=== PATIENT | female | born 1985 | race Caucasian/White ===

== ENCOUNTER 2025-01-29 17:15 | Emergency (ER) | payer OTHER ==
[2025-01-29] MEDS ORDERED: Magnesium Sulfate 2gm IVPB 2 G/50 ML BAG IV ONE (18:22)
[2025-01-29] MEDS ORDERED: NA CHLORIDE 0.9% 1,000 ML ONE (18:22)
[2025-01-29] MEDS ORDERED: ACETAMINOPHEN 500 MG TAB ONE (18:22)
[2025-01-29 18:52] LABS: Absolute Basophils 0.1 K/uL (0-0.5); Absolute Eosinophils 0.1 K/uL (0-0.5); Absolute Lymphocytes (CBC) 3.7 K/uL (0.7-4.9); Absolute Monocytes 0.5 K/uL (0.1-1.3); Absolute Neutrophil 5.2 K/uL (1.8-8.0); Basophils % 0.8 % (0-1.3); Eosinophils % 0.8 % (0-4.4); Hematocrit 39.4 % (36.0-45.0); Hemoglobin 13.2 g/dL (12.0-15.0); Lymphocytes % 38.2 % (15.3-44.8); MCHC 33.4 g/dL (32.0-36.0); MCV 83.8 fL (80-100); MPV 7.2 fL (7.6-11.3); Monocytes % 5.5 % (3.3-12.3); Neutrophils % 54.7 % (41.7-73.7); Nucleated Red Blood Cells % 0.1 % (0-0); Platelets 351 thou/uL (152-406)
[2025-01-29 19:11] LABS: ALT/SGPT 22 U/L (13-56); AST/SGOT 13 U/L (15-37); Albumin 3.4 g/dL (3.4-5.0); Albumin/Globulin Ratio 0.8 (1.1-1.8); Alkaline Phosphatase 76 U/L (45-117); Anion Gap 8.5 mEq/L (5.0-15.0); BUN Blood Urea Nitrogen 9 mg/dL (7-18); Bicarbonate 24 mEq/L (21-32); Bilirubin Total 0.3 mg/dL (0.2-1.0); Globulin 4.5 g/dL (2.3-3.5); Glomerular Filtration Rate 101 ml/min (=/>90); Glucose Level 120 mg/dL (74-106); NT PRO-BNP 22 pg/mL (<125); Potassium 3.5 mEq/L (3.5-5.1); Protein, Total 7.9 g/dL (6.4-8.2); Sodium Level 137 mEq/L (136-145); Thyroid Stimulating Hormone 0.371 uIU/mL (0.358-3.740)
[2025-01-29 19:13] LABS: Bilirubin Direct < 0.2 mg/dL (0-0.2); Bilirubin Indirect, Calculated 0.1 mg/dL (0.2-0.8); Troponin High Sensitivity < 3.0 pg/mL (<58.9)
--- NOTE | 2025-01-29 19:21 | RAD REPORT ---
EXAMINATION: ONE VIEW CHEST XR CLINICAL INDICATION: Female, 39 years old.,CHEST PAIN TECHNIQUE: Frontal chest projection is submitted. Examination is limited by patient positioning and t echnique. COMPARISON: No prior exam. FINDINGS: The lungs are well inflated and clear. No pneumothorax or sizable effusion. The heart is normal in s ize. Mediastinal contours are unremarkable. IMPRESSION: No acute intrathoracic abnormalities.
[2025-01-29] MEDS ORDERED: hydrOXYzine HCL 25 MG TAB ONE (20:12)
--- NOTE | 2025-01-29 20:20 | ER ---
Nurse's Notes [facility] Name: Estefania Cristina Age: 39 yrs Sex: Female : 1985 Arrival Date: 01/29/2025 Time: 17:15 Bed 14 Private MD: Diagnosis: Chest pain, unspecified;Headache Presentation: 01/29 17:40 Chief complaint: Patient states: Burning in chest and tightness that radiates up both ph sides of neck, also reports headache, states, " I feel like I'm getting electrical shocks all over my body", symptoms have been occurring for 3 days. Coronavirus screen: Vaccine status: Patient reports being unvaccinated. Ebola Screen: No symptoms or risks identified at this time. Initial Sepsis Screen: Does the patient meet any 2 criteria? No. Patient's initial sepsis screen is negative. Does the patient have a suspected source of infection? No. Patient's initial sepsis screen is negative. Risk Assessment: Do you want to hurt yourself or someone else? Patient reports no desire to harm self or others. 17:40 Method Of Arrival: Ambulatory ph 17:40 Acuity: CHAPITO 2 ph Historical: - Allergies: 17:43 Morphine; ph 17:43 Clindamycin; ph 17:43 sulfamethoxazole-trimethoprim; ph - Immunization history:: Adult Immunizations unknown. - Infectious Disease History:: Denies. - Social history:: Smoking status: Reported history of juuling and/or vaping. - Family history:: not pertinent. Screenin:30 [facility] ED Fall Risk Assessment (Adult) History of falling in the last 3 months, db including since admission No falls in past 3 months (0 pts) Confusion or Disorientation No (0 pts) Intoxicated or Sedated No (0 pts) Impaired Gait No (0 pts) Mobility Assist Device Used No (0 pt) Altered Elimination No (0 pt) Score/Fall Risk Level 0 - 2 = Low Risk Oriented to surroundings, Maintained a safe environment. Abuse screen: Denies threats or abuse. Denies injuries from another. Nutritional screening: No deficits noted. Tuberculosis screening: No symptoms or risk factors identified. Assessment: 18:30 Reassessment: Patient appears in no apparent distress at this time. Patient and/or db family updated on plan of care and expected duration. Pain level reassessed. Patient is alert, oriented x 3, equal unlabored respirations, skin warm/dry/pink. General: Appears in no apparent distress. comfortable, Behavior is calm, cooperative. Pain: Complains of pain in chest. Neuro: Level of Consciousness is awake, alert, obeys commands, Oriented to person, place, time, situation. Respiratory: Airway is patent Respiratory effort is even, unlabored, Respiratory pattern is regular, symmetrical. GI: Abdomen is flat. 19:10 General: Appears in no apparent distress. comfortable, Behavior is calm, cooperative. rg5 19:10 Pain: Complains of pain in chest. Neuro: Level of Consciousness is awake, alert, obeys rg5 commands, Oriented to person, place, time, situation. Cardiovascular: Reports chest pain. Respiratory: Airway is patent Trachea midline Respiratory effort is even, unlabored, Respiratory pattern is regular, symmetrical. GI: Abdomen is flat, non-distended. : No signs and/or symptoms were reported regarding the genitourinary system. EENT: No signs and/or symptoms were reported regarding the EENT system. Derm: Skin is intact, Skin is dry, Skin is normal, Skin temperature is warm. Musculoskeletal: Circulation, motion, and sensation intact. Range of motion: intact in all extremities. Vital Signs: 17:40 BP 128 / 105; Pulse 120; Resp 18; Temp 98.4; Pulse Ox 98% on R/A; ph 18:30 BP 116 / 191; Pulse 105; Resp 18; Pulse Ox 100% on R/A; db 19:15 BP 129 / 94; Pulse 100; Resp 17; Temp 98; Pulse Ox 100% on R/A; Pain 0/10; rg5 19:15 Pain Scale: Adult rg5 ED Course: 15:46 TNK CONSENT. db 17:19 Patient arrived in ED. im 17:22 Oleg Suarez MD is Attending Physician. rt 17:43 Triage completed. ph 17:44 Arm band placed on Patient placed in an exam room. ph 18:11 XRAY Chest (1 view) In Process Unspecified. EDMS 18:30 Patient has correct armband on for positive identification. Bed in low position. Call db light in reach. Side rails up X 1. Provided Education on:. Client placed on continuous cardiac and pulse oximetry monitoring. NIBP monitoring applied. medical staff assistant on. Pulse ox on. NIBP on. Warm blanket given. 18:30 No provider procedures requiring assistance completed. Initial lab(s) drawn, by me, db sent to lab. Inserted saline lock: 20 gauge in right antecubital area, using aseptic technique. Blood collected. Flushed with 10 mL NS. 18:56 Octavia Martinez, RN is Primary Nurse. db 20:23 IV discontinued, bleeding controlled, No redness/swelling at site. Pressure dressing rg5 applied. Administered Medications: 18:30 Drug: Magnesium Sulfate IVPB 2 grams IVPB once over 1 hrs Route: IVPB; Infused Over: 1 db hrs; Site: right antecubital; 19:54 Follow up: IV Status: Completed infusion; IV Intake: 100ml rg5 18:30 Drug: Acetaminophen PO 1000 mg PO once Route: PO; db 19:54 Follow up: Response: No adverse reaction; Pain is decreased rg5 18:32 Drug: NS 0.9% IV 1000 ml IV at 1000 ml once; to be given as a bolus over 60 minutes db Route: IV; Rate: 1000 ml; Site: right antecubital; 19:54 Follow up: IV Status: Completed infusion; IV Intake: 1000ml rg5 20:10 Drug: hydrOXYzine PO 25 mg PO once Route: PO; rg5 20:23 Follow up: Response: No adverse reaction rg5 Medication: 18:30 VIS not applicable for this client. db Intake: 19:54 IV: 1000ml; Total: 1000ml. rg5 19:54 IV: 100ml; Total: 1100ml. rg5 Outcome: 20:20 Discharge ordered by . rt 20:23 Discharged to home rg5 20:23 Condition: stable 20:23 Discharge instructions given to patient, Instructed on discharge instructions, follow up and referral plans. Demonstrated understanding of instructions, follow-up care, 20:40 Patient left the ED. rg5 Signatures: Dispatcher [employer] Jayde Noriega RN RN Octavia Martinez, ELOISE RN Oleg Melton MD MD rt Giuliana Warren Rommel, RN RN rg5
--- NOTE | 2025-01-29 20:20 | EDPHYS ---
Physician Documentation [facility] Name: Estefania Cristina Age: 39 yrs Sex: Female : 1985 Arrival Date: 01/29/2025 Time: 17:15 Bed 14 Private MD: ED Physician Oleg Suarez HPI: 01/29 18:36 This 39 yrs old Female presents to ER via Ambulatory with complaints of Headache, Chest rt Pressure, shocks all over body. 18:44 Patient presents to the ED with chest pain radiating to the neck, with associated rt headache, reports an electric shock sensation throughout her entire body, denies other acute complaints at this time, symptoms are moderate in severity, no other aggravating or alleviating factors. States that the symptoms do worsen when she lies down flat, improves when she sits upright. Historical: - Allergies: 17:43 Morphine; ph 17:43 Clindamycin; ph 17:43 sulfamethoxazole-trimethoprim; ph - Immunization history:: Adult Immunizations unknown. - Infectious Disease History:: Denies. - Social history:: Smoking status: Reported history of juuling and/or vaping. - Family history:: not pertinent. ROS: 18:44 Constitutional: Negative for fever, chills, and weight loss, Respiratory: Negative for rt shortness of breath, cough, wheezing, and pleuritic chest pain, Abdomen/GI: Negative for abdominal pain, nausea, vomiting, diarrhea, and constipation, MS/Extremity: Negative for injury and deformity, Skin: Negative for injury, rash, and discoloration, 18:44 Cardiovascular: Positive for chest pain, Negative for edema, 18:44 Neuro: Positive for headache, Negative for loss of consciousness, Exam: 18:44 Constitutional: This is a well developed, well nourished patient who is awake, alert, rt and in no acute distress. Head/Face: Normocephalic, atraumatic. Chest/axilla: Normal chest wall appearance and motion. Nontender with no deformity. No lesions are appreciated. Cardiovascular: Regular rate and rhythm with a normal S1 and S2. No gallops, murmurs, or rubs. Normal PMI, no JVD. No pulse deficits. Respiratory: Lungs have equal breath sounds bilaterally, clear to auscultation and percussion. No rales, rhonchi or wheezes noted. No increased work of breathing, no retractions or nasal flaring. Abdomen/GI: Soft, non-tender, with normal bowel sounds. No distension or tympany. No guarding or rebound. No evidence of tenderness throughout. Skin: Warm, dry with normal turgor. Normal color with no rashes, no lesions, and no evidence of cellulitis. MS/ Extremity: Pulses equal, no cyanosis. Neurovascular intact. Full, normal range of motion. Neuro: Awake and alert, GCS 15, oriented to person, place, time, and situation. Cranial nerves II-XII grossly intact. Motor strength 5/5 in all extremities. Sensory grossly intact. Cerebellar exam normal. Normal gait. 18:44 ECG was reviewed by the Attending Physician. Vital Signs: 17:40 BP 128 / 105; Pulse 120; Resp 18; Temp 98.4; Pulse Ox 98% on R/A; ph 18:30 BP 116 / 191; Pulse 105; Resp 18; Pulse Ox 100% on R/A; db 19:15 BP 129 / 94; Pulse 100; Resp 17; Temp 98; Pulse Ox 100% on R/A; Pain 0/10; rg5 19:15 Pain Scale: Adult rg5 MDM: 17:39 Medical Screening Exam initiated rt 21:09 Differential diagnosis: Migraine headache, ACS, dysrhythmia, PE, electrolyte rt disturbance. Data reviewed: vital signs, nurses notes, lab test result(s), EKG, radiologic studies. Consideration of Admission/Observation Escalation of care including admission/observation considered. Symptoms resolved with magnesium, essentially negative workup, no indications for admission at this time.. I considered the following discharge prescriptions or medication management in the emergency department Medications were administered in the Emergency Department. See MAR. Independent interpretation of the following test(s) in the Emergency Department X-Ray: My interpretation is No Foltrate seen on interpretation of x-ray images. Test considered but Not performed: CT: Low suspicion for acute CVA, intracranial hemorrhage, CT scan of the head is not indicated. Counseling: I had a detailed discussion with the patient and/or guardian regarding the historical points, exam findings, and any diagnostic results supporting the discharge/admit diagnosis, lab results, radiology results, the need for outpatient follow up, to return to the emergency department if symptoms worsen or persist or if there are any questions or concerns that arise at home. Response to treatment: the patient's symptoms have resolved after treatment. 01/29 17:48 Order name: Basic Metabolic Panel; Complete Time: 19:53 rt 01/29 17:48 Order name: CBC with Diff; Complete Time: 19:53 rt 01/29 17:48 Order name: D-Dimer; Complete Time: 19:53 rt 01/29 17:48 Order name: LFT's; Complete Time: 19:53 rt 01/29 17:48 Order name: NT PRO-BNP; Complete Time: 19:53 rt 01/29 17:48 Order name: Troponin HS; Complete Time: 19:53 rt 01/29 17:48 Order name: TSH; Complete Time: 19:53 rt 01/29 17:48 Order name: XRAY Chest (1 view); Complete Time: 19:53 rt 01/29 17:48 Order name: Cardiac monitoring; Complete Time: 19:08 rt 01/29 17:48 Order name: EKG - Nurse/Tech; Complete Time: 18:56 rt 01/29 17:48 Order name: IV Saline Lock; Complete Time: 19:08 rt 01/29 17:48 Order name: Labs collected and sent; Complete Time: 18:56 rt 01/29 17:48 Order name: O2 Per Protocol; Complete Time: 19:08 rt 01/29 17:48 Order name: O2 Sat Monitoring; Complete Time: 19:08 rt EC:44 Rate is 107 beats/min. Rhythm is regular, Sinus tachycardia with No ectopy. QRS [place] is rt Normal. [place] interval is normal. QRS interval is normal. QT interval is normal. No Q waves. T waves are Normal. No ST changes noted. Interpreted by me. Administered Medications: 18:30 Drug: Magnesium Sulfate IVPB 2 grams IVPB once over 1 hrs Route: IVPB; Infused Over: 1 db hrs; Site: right antecubital; 19:54 Follow up: IV Status: Completed infusion; IV Intake: 100ml rg5 18:30 Drug: Acetaminophen PO 1000 mg PO once Route: PO; db 19:54 Follow up: Response: No adverse reaction; Pain is decreased rg5 18:32 Drug: NS 0.9% IV 1000 ml IV at 1000 ml once; to be given as a bolus over 60 minutes db Route: IV; Rate: 1000 ml; Site: right antecubital; 19:54 Follow up: IV Status: Completed infusion; IV Intake: 1000ml rg5 20:10 Drug: hydrOXYzine PO 25 mg PO once Route: PO; rg5 20:23 Follow up: Response: No adverse reaction rg5 Disposition Summary: 01/29/25 20:20 Discharge Ordered Notes: Location: Home rt Problem: new rt Symptoms: have improved rt Condition: Stable rt Diagnosis - Chest pain, unspecified rt - Headache rt Followup: rt - With: Private Physician - When: 2 - 3 days - Reason: Discharge Instructions: - Discharge Summary Sheet rt - Nonspecific Chest Pain, Adult rt - General Headache Without Cause rt Forms: - Medication Reconciliation Form rt - Antibiotic Education rt - Prescription Opioid Use rt - Patient Portal Instructions rt - Leadership Thank You Letter rt Signatures: Dispatcher [employer] EDJayde Arceo, RN RN Octavia Martinez RN RN db Oleg Suarez MD MD rt Suresh Mccullough RN RN rg5 Corrections: (The following items were deleted from the chart) 17:49 17:49 BASIC METABOLIC PANEL+C.LAB.BRZ ordered. EDMS EDMS 17:49 17:49 CBC+H.LAB.BRZ ordered. EDMS EDMS 17:49 17:49 D-DIMER+COAG.LAB.BRZ ordered. EDMS EDMS 17:49 17:49 HEPATIC FUNCTION+C.LAB.BRZ ordered. EDMS EDMS 17:49 17:49 PROBNP+C.LAB.BRZ ordered. EDMS EDMS 17:49 17:49 Troponin High Sensitivity+C.LAB.BRZ ordered. EDMS EDMS 17:49 17:49 THYROID STIMULAT HORMONE+C.LAB.BRZ ordered. EDMS EDMS 17:49 17:49 Chest Single View+RAD.RAD.BRZ ordered. EDMS EDMS
[2025-01-29 21:28] VITALS: O2SAT 100
[2025-01-29 21:29] VITALS: BP 129/94; TEMP 98
--- NOTE | 2025-01-31 14:45 | EKG ---
Test Date: 2025-01-29 Test Time: 17:52:40 [employer] Department Manager: MARY MEASUREMENT RESULTS: Intervals: Rate: 107 AK: 120 QRSD: 78 QT: 340 QTc: 453 [place]: P: 31 AK: 120 QRS: 90 T: 28 INTERPRETIVE STATEMENTS: Sinus tachycardia Otherwise normal ECG No previous ECG available for comparison Electronically Signed On 01-31-25 14:41:35 CDT by Bigg Rojas
== END 2025-01-29 20:40 | disposition home or self-care (01) ==
LOC: ER 17:15
DX: R07.9 Chest pain, unspecified (principal); R51.9 Headache, unspecified
CPT/HCPCS: 85025; 80048; 36415; 85379; 80076; 84443; 84484; 83880; 71045; J3475; J7030; 93005; 96365; 99285